=== PATIENT | male | born 1970 | race Caucasian/White ===

== ENCOUNTER 2018-04-30 16:09 | Emergency (ER) | payer BC ==
[2018-04-30] MEDS: dexameTHASONE 4 MG/ML 1ML VIAL (J1100) PO (17:41)
[2018-04-30] MEDS: ACETAMINOPHEN TAB 650MG DOSE (2X325MG) PO (17:42)
[2018-04-30] MEDS: NORCO, ANEXSIA 5/325MG TABLET (HYDROcodone/ACETAMINOPHEN) PO (17:43)
== END 2018-04-30 19:21 | disposition home or self-care (01) ==
LOC: M ED 16:09
DX: J02.0 Streptococcal pharyngitis (principal); Z79.2 Long term (current) use of antibiotics
CPT/HCPCS: J1100